=== PATIENT | male | born 2000 | race Hispanic/Latino ===

== ENCOUNTER 2023-11-24 16:31 | Emergency (ER) | payer OTHER ==
[2023-11-24] MEDS ORDERED: Proparacaine 0.5% Opth 15 ML BOT ONE (18:09)
[2023-11-24] MEDS ORDERED: Fluorescein Opthalmic Strip ONE (18:27)
== END 2023-11-24 19:40 | disposition home or self-care (01) ==
LOC: ERS 16:31
DX: H10.9 Unspecified conjunctivitis (principal)
CPT/HCPCS: 99283